=== PATIENT | female | born 1960 | race American Indian/Alaskan Native ===

== ENCOUNTER 2017-06-07 08:57 | Observation (INO) | payer OTHER ==
[~2017-06-07 08:57] MED LIST: ANCEF/STERILE WATER 2 GM/20 ML IV NR; DECADRON IV NR; HEPARIN SUB-Q NR; NACL 0.9% IR ONE
--- NOTE | 2017-06-07 10:42 | Anesthesia Consultation ---
Anesthesia Consult and Med Hx Date of service: 06/07/17 - Airway Anesthetic Teeth Evaluation: Good, Partials Mental/Hyoid Distance: Adequate Mallampati Class: Class II Intubation Access Assessment: Probably Good - Pulmonary Exam CTA: Yes - Cardiac Exam Cardiac Exam: RRR - Cardiovascular System Hx Hypertension: Yes (15Y ) - Central Nervous System Hx Psychiatric Problems: Yes - Gastrointestinal Hx Gastroesophageal Reflux Disease: Yes (severe) - Hematic Hx Anemia: No Hx Sickle Cell Disease: No - Other Systems Hx Alcohol Use: No Hx Substance Use: No Hx Cancer: No
--- NOTE | 2017-06-07 10:42 | Anesthesia Day of Surgery ---
Anesthesia Day of Surgery - Day of Surgery Patient Examined: Yes Patient H&P Reviewed: Yes Patient is NPO: Yes
[2017-06-07] MEDS ORDERED: DILAUDID IV PRN (10:43)
[2017-06-07] MEDS ORDERED: PERCOCET 5/325 PO PRN ×2 (10:43→14:00)
[2017-06-07] MEDS ORDERED: DIPRIVAN 10 MG/ML IV ONE (10:52)
[2017-06-07] MEDS ORDERED: NACL BACTERIOSTATIC INFILTRATI ONE (10:54)
[2017-06-07] MEDS ORDERED: ZEMURON IV ONE (10:55)
[2017-06-07] MEDS ORDERED: XYLOCAINE MPF 2% ONE (10:55)
[2017-06-07] MEDS ORDERED: SUBLIMAZE ONE (10:56)
[2017-06-07] MEDS ORDERED: PEPCID IV NR (11:00)
[2017-06-07] MEDS ORDERED: VERSED IV NR (11:00)
[2017-06-07] MEDS ORDERED: ZOFRAN IV PRN ×2 (11:30→14:00)
[2017-06-07] MEDS ORDERED: MARCAINE 0.25% INFILTRATI ONE ×2 (11:47→11:51)
[2017-06-07] MEDS ORDERED: NACL 0.9% IR ONE (11:47)
[2017-06-07] MEDS ORDERED: LACTATED RINGERS 1,000 ML IV SCH (12:00)
[2017-06-07] MEDS ORDERED: ePHEDrine SULFATE ONE (12:11)
[2017-06-07] MEDS ORDERED: ZOFRAN ONE (13:43)
[2017-06-07] MEDS ORDERED: NEOSTIGMINE ONE (13:44)
[2017-06-07] MEDS ORDERED: ROBINUL ONE ×2 (13:44→13:45)
[2017-06-07] MEDS ORDERED: TORADOL ONE (13:47)
--- NOTE | 2017-06-07 13:50 | Post Operative Note ---
Pre-op diagnosis: Recurrent GERD and Hiatal hernia Post-op diagnosis: same Procedure: Lap redo Trixie fundoplication with recurrent hiatal hernia repair with right crura component separation Anesthesia: GETA, local Surgeon: VIANNEY TAO [employer] Tour Guide: GLEN BAGLEY Estimated blood loss: none Pathology: none Condition: stable Disposition: observation
[2017-06-07] MEDS ORDERED: MORPHINE IV PRN (14:00)
[2017-06-07] MEDS ORDERED: DILAUDID ONE (14:03)
[2017-06-07] MEDS ORDERED: KCL 20 MEQ in LACTATED RINGERS 1,000 ML IV SCH (14:30)
--- NOTE | 2017-06-07 14:55 | Operative Report ---
PREOPERATIVE DIAGNOSES: Recurrent gastroesophageal reflux disease and recurrent hiatal hernia. POSTOPERATIVE DIAGNOSES: Recurrent gastroesophageal reflux disease and recurrent hiatal hernia. PROCEDURES: Laparoscopic redo Trixie fundoplication and repair of recurrent hiatal hernia, right-sided crura component separation with medial rotation of the right crura. SURGEON: Joel Paez M.D. SOLE SEAMER: Dr. Limon. ANESTHESIA: General and local. ESTIMATED BLOOD LOSS: Minimal. SPECIMEN: None. COMPLICATIONS: None. INDICATIONS: This is a 56-year-old female who has recurrent gastroesophageal reflux disease and hiatal hernia, who presents now for repair. OPERATIVE COURSE: The patient was brought to the operating room, identified, and placed in the supine position. General anesthesia was achieved. Her abdomen was prepped and draped in usual manner. Prior to all incisions, the area was injected with 0.25% Marcaine. Local was used in all the prior scars on her abdominal cavity, which included left periumbilical, left lateral, left subcostal 10 mm port, subxiphoid 5 mm port, and a right upper quadrant 5 mm port. The abdomen was explored. The left lobe of the liver was elevated. There were some minor adhesions between the liver and the stomach, which were taken down with Harmonic scalpel. We were then able to dissect out the adhesions around the GE junction with a combination of blunt, sharp, and Harmonic dissection with great care being taken not to injure the esophagus or stomach. We were then able to identify the crura. There was small recurrence of the hiatal hernia though the GE junction was lying in the abdominal cavity. We then took the fundoplication apart, which had stretched apart and once we had the stomach back in their normal anatomic position, we then repaired the crura after doing a component separation on the right side the fascia using the Harmonic scalpel and allowing us to relieve tension on the right crura going up particularly the anterior aspect. Great care was taken to make sure we did not injure the inferior vena cava or hepatic vein or going to the pericardium or the chest. Once we had the component separation done, we were able to medially rotate the muscle, the crura and then repaired the crural defect by suturing the left and right mami together with 0 Surgidac suture using EndoStitch device. Once we were satisfied, we had an appropriate closure. We introduced a 52 Swiss bougie over which we did our Trixie fundoplication by suturing the stomach through the esophagus into the stomach with 3 sutures to create a 2 cm long Trixie fundoplication. Bougie was then removed. The wrap was found to be nice and loose. We had at least 3, almost 4 cm of exposed esophagus in the abdominal cavity. I did put an extra suture anterior on the crura to help tailor the opening to the appropriate size around the esophagus. Once this was done, we examined the area and found good hemostasis. No signs of injury to other organs. No other signs of pathology. We then removed the retractor and the ports under direct vision. No signs of bleeding from the port sites. We then evacuated the CO2 and then closed all the incisions with a 4-0 Vicryl suture, Steri-Strips, and bandage. She tolerated the procedure well without complications. JOB# [id number] ENA/TANG
[2017-06-07] MEDS ORDERED: ANTILIRIUM ONE (14:59)
[2017-06-07] MEDS ORDERED: ANTILIRIUM IV PRN (15:05)
--- NOTE | 2017-06-07 17:07 | Post Anesthesia Evaluation ---
- Post Anesthesia Evaluation Patient Participated: Yes Airway Patent: Yes Stable Respiratory Function: Yes Nausea/Vomiting: No Temp > 96.8F: Yes Pain Manageable: Yes Adequeate Hydration: Yes Anesthesia Complications: No
[2017-06-07] MEDS: HEPARIN SUB-Q SCH (21:20)
[2017-06-08] MEDS: HEPARIN SUB-Q SCH ×2 (04:11→12:23)
[2017-06-08 08:12] VITALS: BP 131/83
--- NOTE | 2017-06-08 13:56 | Short Stay Summary ---
Short Stay Documentation Date of service: 06/08/17 Narrative H&P: pt doing well. tolerating PO. wants to go home. - History H&P: obtained from office - Allergies and Medications Current Medications: Allergies No Known Allergies Allergy (Verified 06/06/17 17:47) Home Medications Medication Instructions Recorded Confirmed Last Taken Type Sertraline [Zoloft] 50 mg PO QDAY 06/06/17 06/07/17 06/06/17 History Triamterene/Hydrochlorothiazid 1 tab PO DAILY 06/06/17 06/07/17 06/06/17 History [Triamterene-Hctz 37.5-25 mg Tb] Calcium Carbonate [Calcium] 500 mg PO DAILY 06/07/17 06/07/17 06/06/17 History Cyanocobalamin/Folic Acid [Vitamin 1 each PO DAILY 06/07/17 06/07/17 1 Week Ago History I76-Dehxc Acid Tablet] ~05/31/17 Omeprazole [Omeprazole] 40 mg PO DAILY 06/07/17 06/07/17 06/06/17 History Active Medications Heparin Sodium (Porcine) (Heparin) 5,000 unit SUB-Q Q8H VANESSA Last Admin: 06/08/17 12:23 Dose: 5,000 unit Lactated Ringer's (Lactated Ringers) 1,000 mls @ 100 mls/hr IV DIRECT VANESSA Last Admin: 06/07/17 11:24 Dose: 100 mls/hr Potassium Chloride 20 meq/ (Lactated Ringer's) 1,010 mls @ 50 mls/hr IV DIRECT VANESSA Morphine Sulfate (Morphine) 4 mg IV Q4H PRN PRN Reason: Pain , Severe (7-10) Ondansetron HCl (Zofran) 4 mg IV ONCE PRN PRN Reason: Nausea And Vomiting Ondansetron HCl (Zofran) 4 mg IV Q4H PRN PRN Reason: Nausea Oxycodone/Acetaminophen (Percocet 5/325) 1 tab PO Q6H PRN PRN Reason: Pain, Moderate (4-6) Physostigmine Salicylate (Antilirium) 1 mg IV Q20M PRN PRN Reason: Anesthesia - Physical exam General appearance: no acute distress Lungs: Normal air movement Heart: Regular rate Gastrointestinal: normal - Brief post op/procedure progress note Date of procedure: 06/07/17 (see op note) - Hospital course Hospital course: unremarkable - Disposition Condition at discharge: Stable Disposition: DC-01 TO HOME OR SELFCARE Short Stay Discharge Plan Activity: no restrictions Diet: other Wound: open to air, keep clean and dry Follow up with: DEVYN MARTE MD [Primary Care Provider] - 7 Days VIANNEY TAO MD [Staff Physician] - 7 Days Prescriptions: oxyCODONE /ACETAMINOPHEN [Percocet 5/325 mg] 1 tab PO Q6H PRN #30 tablet PRN Reason: Pain, Moderate (4-6) Promethazine [Phenergan TAB] 25 mg PO Q8HR PRN #30 tab PRN Reason: Nausea
== END 2017-06-08 15:25 | disposition home or self-care (01) ==
LOC: OR 08:57 → EDSTATUS 12:00 → 3B-SURG 13:51
PROVIDERS: ADMIT Surgery; ATTEND Surgery
DX: K44.9 Diaphragmatic hernia without obstruction or gangrene (principal); K21.9 Gastro-esophageal reflux disease without esophagitis; J45.909 Unspecified asthma, uncomplicated; J02.9 Acute pharyngitis, unspecified; F41.9 Anxiety disorder, unspecified; F32.9 Major depressive disorder, single episode, unspecified; Z80.3 Family history of malignant neoplasm of breast
CPT/HCPCS: 36415; 43282; 84132; 96372; G0378; J0690; J1100; J1170; J1644; J1885; J2250; J2405; J2704; J2710; J3010; J3480; J7120